=== PATIENT | female | born 1940 | race Caucasian/White ===

== ENCOUNTER 2022-06-09 09:11 | Emergency (ER) | payer OTHER, BC ==
[2022-06-09 09:42] VITALS: BP 154/59; PULSE 80; RESP 16; TEMP 98.2; BMI 24.4
[2022-06-09 11:07] LABS: HEMATOCRIT 38.7 % (32.4-45.2); MCH 28.7 pg (25.7-33.7); MCHC 33.7 g/dl (32.0-36.0); MEAN CELL VOLUME 85.3 fl (80-96); MEAN PLT VOLUME 9.6 fl (7.5-11.1); PLATELET COUNT 246.5 10^3/uL (134-434); RBC 4.54 10^6/uL (3.60-5.2); RDW 15.5 % (11.6-15.6); WHITE BLOOD COUNT 7.1 10^3/uL (4.0-10.8)
[2022-06-09 11:22] LABS: EPITHELIAL CELLS MANY /hpf
[2022-06-09 11:27] LABS: ALBUMIN 4.2 g/dl (3.4-5.0); BILIRUBIN,TOTAL 0.8 mg/dl (0.2-1); CREATININE 0.8 mg/dl (0.55-1.3); TOT PROT 6.9 g/dl (6.4-8.2)
[2022-06-09] MEDS ORDERED: predniSONE 20 MG TABLET (UD) PO SCH (14:30)
[2022-06-09] MEDS ORDERED: predniSONE 10 MG TABLET (UD) ONE (14:32)
== END 2022-06-09 14:38 | disposition home or self-care (01) ==
LOC: FER 09:11
DX: M54.42 Lumbago with sciatica, left side (principal); R31.1 Benign essential microscopic hematuria
CPT/HCPCS: 0241U-QW; 36415; 72131-TC; 74176-TC; 80053; 81003; 81015; 85027; 87086; 99285-25